=== PATIENT | female | born 1970 | race Caucasian/White ===

== ENCOUNTER 2018-01-03 13:08 | Emergency (ER) | payer OTHER ==
[2018-01-03] MEDS: KETOROLAC 30 MG INJ IM (13:46)
== END 2018-01-03 14:24 | disposition home or self-care (01) ==
LOC: FTE 13:08
DX: M54.5 Low back pain (principal)
CPT/HCPCS: 96372; 99284-25

== ENCOUNTER 2018-08-08 02:50 | Emergency (ER) | payer OTHER, MEDICAID ==
[2018-08-08] MEDS: SOD CHLORIDE 0.9% 1,000 ML IV (03:54)
[2018-08-08] MEDS: ACETAMINOPHEN 500 MG TAB PO (03:55)
[2018-08-08 03:56] LABS: ADD MAN DIFF? NO
[2018-08-08] MEDS: KETOROLAC 30 MG INJ IV (03:56)
[2018-08-08] MEDS: SODIUM CHLORIDE 0.9% 1L BAG IV* (03:57)
[2018-08-08 04:04] LABS: ADD UMIC YES; UR ASCORBIC ACID NEGATIVE (NEGATIVE); UR BACTERIA FEW /HPF (NONE SEEN); UR BILIRUBIN (Dip) NEGATIVE (NEGATIVE); UR BLOOD (Dip) 1+ mg/dL (NEGATIVE); UR CLARITY CLEAR (CLEAR); UR COLOR YELLOW (YELLOW); UR GLUCOSE (Dip) 1+ mg/dL (NEGATIVE); UR KETONES (Dip) NEGATIVE (NEGATIVE); UR LEUKOCYTE ESTERASE (Dip) NEGATIVE Leu/ul (NEGATIVE); UR MUCUS FEW /HPF (NONE SEEN); UR NITRITE (Dip) NEGATIVE (NEGATIVE); UR RBC 5 /HPF (0-5); UR SPECIFIC GRAVITY (Dip) 1.017 (1.003-1.030); UR SQUAMOUS EPITHELIAL CELL FEW /HPF (FEW); UR TOTAL PROTEIN (Dip) 1+ mg/dl (NEGATIVE); UR UROBILINOGEN (Dip) NEGATIVE (NEGATIVE); UR WBC 1 /HPF (0-5)
[2018-08-08 04:15] LABS: ALANINE AMINOTRANSFERASE 224 IU/L (13-69); ALBUMIN 4.1 g/dl (3.3-4.9); ALBUMIN/GLOBULIN RATIO 1.51; ALKALINE PHOSPHATASE 262 IU/L (42-121); ANION GAP 13 (5-13); ASPARTATE AMINO TRANSFERASE 319 IU/L (15-46); BILIRUBIN,INDIRECT 0.4 mg/dl (0-1.1); BILIRUBIN,TOTAL 0.4 mg/dl (0.2-1.3); BLOOD UREA NITROGEN 8 mg/dl (7-20); CALCIUM 8.6 mg/dl (8.4-10.2); CARBON DIOXIDE 25 mmol/L (21-31); CHLORIDE 99 mmol/L (97-110); CREATININE 0.89 mg/dl (0.44-1.00); Estimated GFR > 60 mL/min (>60); GLUCOSE 201 mg/dl (70-220); POTASSIUM 3.9 mmol/L (3.5-5.1); SODIUM 137 mmol/L (135-144); TOTAL PROTEIN 6.8 g/dl (6.1-8.1)
[2018-08-08 04:19] LABS: BASOPHILS % 0.3 % (0.0-2.0); EOSINOPHILS # 0.1 10^3/ul (0.0-0.5); EOSINOPHILS % 1.3 % (0.0-7.0); HEMATOCRIT 37.1 % (37.0-47.0); HEMOGLOBIN 12.6 g/dl (12.0-16.0); LYMPHOCYTES # 0.8 10^3/ul (0.8-2.9); LYMPHOCYTES % 12.6 % (15.0-51.0); MEAN CORPUSCULAR VOLUME 85.3 fl (82.0-101.0); MEAN PLATELET VOLUME 10.3 fl (7.4-10.4); MONOCYTE # 0.3 10^3/ul (0.3-0.9); MONOCYTES % 4.9 % (0.0-11.0); NEUTROPHIL # 5.1 10^3/ul (1.6-7.5); NEUTROPHILS % 80.6 % (39.0-77.0); PLATELET COUNT 198 10^3/UL (140-415); RED BLOOD COUNT 4.35 10^6/ul (4.20-5.40); RED CELL DISTRIBUTION WIDTH 12.6 % (11.5-14.5)
[2018-08-08 04:19] LABS: WHITE BLOOD COUNT 6.3 10^3/ul (4.8-10.8)
[2018-08-08] MEDS ORDERED: METOCLOPRAMIDE 10 MG INJ IV (06:30)
[2018-08-08] MEDS ORDERED: DIPHENHYDRAMINE 50 MG INJ IV (06:30)
== END 2018-08-08 07:32 | disposition home or self-care (01) ==
LOC: FTE 02:50 → E/R 07:32
DX: J02.9 Acute pharyngitis, unspecified (principal); R40.2142 Coma scale, eyes open, spontaneous, at arrival to emergency department; R40.2362 Coma scale, best motor response, obeys commands, at arrival to emergency department; R40.2252 Coma scale, best verbal response, oriented, at arrival to emergency department; J06.9 Acute upper respiratory infection, unspecified; R00.0 Tachycardia, unspecified; E87.2 Acidosis; R74.0 Nonspecific elevation of levels of transaminase and lactic acid dehydrogenase [LDH]; J44.9 Chronic obstructive pulmonary disease, unspecified; E11.9 Type 2 diabetes mellitus without complications; Z79.84 Long term (current) use of oral hypoglycemic drugs
CPT/HCPCS: 36415; 71046; 80053; 81001; 81025; 83605; 85025; 87040; 87086; 87400; 87880; 99284-25